=== PATIENT | female | born 1985 | race Caucasian/White ===

== ENCOUNTER → 2019-01-20 | Outpatient (REF) | payer OTHER | LOC: M LAB LCGH 12:18 | PROVIDERS: ATTEND Obstetrics & Gynecology | DX: Z12.4 Encounter for screening for malignant neoplasm of cervix (principal) ==

== ENCOUNTER 2025-06-01 08:38 | Day surgery (SDC) | payer OTHER ==
[~2025-06-01] VITALS: Ht 175.3 cm; Wt 91.2 kg
[~2025-06-01 08:38] MED LIST: AMOX875T2 PO; IBUP-1114 PO; LIDOCAINE 2% 100 MG/5 ML SDV (FOR ANES.) As Ordered ONE; LR 1,000 ML IV SCH; MIDAZOLAM INJ 2 MG/2 ML VIAL As Ordered ONE; ONDANSETRON 4MG/2ML VIAL As Ordered ONE; ROCURONIUM BROMIDE 50MG/5ML VIAL As Ordered ONE; SUGAMMADEX SODIUM 500 MG/5 ML VIAL As Ordered ONE; dexAMETHasone 4 MG/ML 1 ML VIAL As Ordered ONE; dexmedeTOMIDine (4 MCG/ML) 200 MCG/50 ML BTL As Ordered ONE
[2025-06-01] MEDS: dexAMETHasone 4 MG/ML 1 ML VIAL IV ONE (11:00)
[2025-06-01] MEDS: OXYMETAZOLINE 0.05% NASAL SPRAY As Ordered ONE (11:00)
[2025-06-01] MEDS: AMPICILLIN SOD/SULBACTAM SOD 3 GM in DEXTROSE 5% (D5W) MINI-BAG PLU 100 ML IV ONE (11:06)
[2025-06-01] MEDS ORDERED: ACETAMINOPHEN 1000MG/100ML IV BAG As Ordered ONE (11:07)
[2025-06-01] MEDS: CHLORHEXIDINE GLUCONATE 0.12% 15 ML UDC As Ordered ONE (11:21)
[2025-06-01] MEDS ORDERED: LR 1,000 ML IV SCH (11:55)
[2025-06-01] MEDS ORDERED: HYDROMORPHONE HCL 0.5 MG/0.5 ML SYRINGE IV PRN (11:55)
[2025-06-01] MEDS ORDERED: ONDANSETRON 4MG/2ML VIAL IV PRN (11:55)
[2025-06-01 13:00] VITALS: BP 130/82; TEMP 97.8; O2SAT 98
== END 2025-06-01 13:25 | disposition home or self-care (01) ==
LOC: M SDC 08:38
PROVIDERS: ATTEND Dentist
DX: K02.9 Dental caries, unspecified (principal); K21.9 Gastro-esophageal reflux disease without esophagitis; G35.D Multiple sclerosis, unspecified; G40.909 Epilepsy, unspecified, not intractable, without status epilepticus; F17.210 Nicotine dependence, cigarettes, uncomplicated; Z79.899 Other long term (current) drug therapy
CPT/HCPCS: 81025; 88300; D7140; D7210; D9223; J0131; J0295; J0666; J1100; J2250; J2405; J3010